=== PATIENT | male | born 1975 | race Two or more races ===

== ENCOUNTER 2024-01-19 08:45 | Emergency (ER) | payer MEDICAID, SELFPAY ==
[2024-01-19 08:55] VITALS: BP 187/81; PULSE 69; RESP 22; TEMP 36.4; O2SAT 97; BMI 35.0
--- NOTE | 2024-01-19 09:38 | PD.EDADULT ---
ED General RME/HPI General Chief complaint: Abdominal Pain Stated complaint: Abdominal pain, back pain Time Seen by Provider: 01/19/24 08:50 Arrival date/time: 01/19/24 08:45 RME / HPI RME / HPI narrative: 48-year-old male with no significant past medical history who presents with approximately 1 day of left flank pain radiating to the left lower quadrant. He notes some urgency to urinate, no dysuria, no polyuria, no hematuria. He denies nausea vomiting or diarrhea. He denies fevers chills or sweats. He denies recent fall or trauma. Related Data Previous Rx's ?Medication ?Instructions ?Recorded ibuprofen 600 mg tablet 600 mg PO Q8H PRN pain #14 tabs 01/19/24 ondansetron 4 mg disintegrating 4 mg PO Q8H PRN nausea and 01/19/24 tablet vomiting #10 tabs tamsulosin 0.4 mg capsule 0.4 mg PO QDAY 7 days #7 caps 01/19/24 Allergies Allergy/AdvReac Type Severity Reaction Status Date / Time No Known Allergies Allergy Verified 07/29/23 11:39 Review of Systems Review of Systems Systems Reviewed: All systems reviewed, normal except as documented Narrative Review of Systems: Gen: No fever, no chills, no weight loss EYES: No discharge, no visual changes, no pain HEENT: No ear pain, no congestion, no sore throat PULM: no shortness of breath, no cough, no congestion CV: No chest pain, no dyspnea on exertion, no palpitations, no chest tightness GI: No nausea, no vomiting, no diarrhea, +LLQ pain, no constipation : No frequency, +urgency,? no dysuria Musc/skel: No joint pain, +left flank/back pain Skin: No rash, no ecchymosis, no lesions Psyc: No hallucinations, no depression Heme/Lymph: No easy bleeding or bruising tendencies Neuro: No weakness, no headache Past Medical History Past Medical History CARDIAC: Negative Cardiac Disorders or Congestive Heart Failure RESPIRATORY: Negative Chronic Obstructive Pulmonary Disease (COPD) or Asthma GENITOURINARY: Negative Renal Disease ENDOCRINE: Negative Diabetes Mellitus Type 1 or Diabetes Mellitus Type 2 HEMATOLOGIC: Negative Sickle Cell Disease Social History SMOKING STATUS: Never smoker SECOND HAND EXPOSURE: No SUBSTANCE USE: does not use ED Exam Narrative Physical exam: GENERAL APPEARANCE: AxOx4, generally well-appearing, moderate distress, standing up walking, pacing in the room trying to get into a comfortable position HEENT: NC, AT. MMM. EOMI, clear conjunctiva, oropharynx clear. NECK: Supple without lymphadenopathy. No stiffness or restricted ROM. HEART: Normal rate and regular rhythm, normal S1/S1, no m/r/g LUNGS: CTAB, moving air well. No crackles or wheezes are heard. ABDOMEN: Soft, nontender, nondistended with good bowel sounds heard. BACK: No midline C/T/L spine pain or deformity, left CVAT, no obvious deformity. EXTREMITIES: Without cyanosis, clubbing or edema. MUSCULOSKELETAL: FROM of all major joints, no chest tenderness NEUROLOGICAL: Grossly nonfocal. Alert and oriented, moving all 4 extremities. CN not formally tested but appear grossly intact. Observed to ambulate with normal gait. Skin: Warm and dry without any rash. Course Quality Measures none Orders Category Date Time Status CT abdomen pelvis wo con Stat Exams 01/19/24 09:37 Completed Urinalysis Stat Lab 01/19/24 11:29 Completed DiphenhydrAMINE INJ [Benadryl Inj] Med 01/19/24 10:05 Discontinued 50 mg IM X1 ONE Ketorolac Inj [Toradol Inj] Med 01/19/24 09:36 Discontinued 30 mg IM X1 ONE Metoclopramide Inj [Reglan Inj] Med 01/19/24 10:05 Discontinued 10 mg IM X1 ONE Ondansetron Odt [Zofran Odt] Med 01/19/24 09:40 Discontinued 4 mg PO X1 ONE Reevaluation(s) Reevaluation #1: We reviewed all the results, analysis, and treatment plans. Patient is amenable to discharge. Strict return precautions were outlined. Patient was discharged in stable condition. Time: 12:24 Vital Signs Vital signs: Vital Signs Temperature 97.6 F 01/19/24 08:55 Pulse Rate 69 01/19/24 08:55 Respiratory Rate 22 H 01/19/24 08:55 Blood Pressure 187/81 H 01/19/24 08:55 Pulse Oximetry (%) 97 01/19/24 08:55 Oxygen Delivery Method Room Air 01/19/24 08:55 Pulse ox is 97% on room air which is adequate. MDM Patient data External records reviewed:: [facility] previous records (I reviewed ED visit on 01/09/2022) Clinical information provided by:: patient Social determinants that could affect healthcare access:: none Patient has the following chronic illnesses:: No stated medical hx How is presenting disease/condition affected by chronic disease/condition?: no chronic disease Evaluation data The following diagnostics were reviewed and interpreted by me:: radiology exam(s) Lab and/or radiology exams considered but not ordered:: None Interpretation Summary: Ordering Physician: Josué Rose MD Date of Service: 01/19/24 Procedure(s): CT abdomen pelvis wo con Accession Number(s): [id number] cc: Josué Rose MD; Jason Motley MD; Bassam Pat MD~ Examination: CT abdomen and pelvis without contrast. Coronal 3-D reconstructions. Sagittal 2-D reconstructions. 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 Low dose protocols were performed. One or more of the following dose reduction techniques were used; automated exposure control, adjustment of the mA and/or KV according to patient size, use of iterative reconstruction technique. Findings: No visualized liver or splenic lesion No gallstones No pancreatic or adrenal mass Minimal left hydronephrosis secondary to 2 mm proximal left ureteral calculus Aorta normal size No bowel obstruction No pericecal inflammatory change Colonic diverticulosis, no diverticulitis Contracted urinary bladder IMPRESSION: Minimal left hydronephrosis secondary to 2 mm proximal left ureteral calculus Dictated By:Jason Motley MD Signed By:<Electronically signed by Jason Motley MD in [place]>01/19/24 1035 Medications Medications considered but not ordered:: None Medication administrations:: Medication Administration History Discontinued Medications Diphenhydramine HCl (Diphenhydramine Inj 50 Mg/Ml Vial) 50 mg IM X1 ONE Stop: 01/19/24 10:06 Last Admin: 01/19/24 10:20 Dose: 50 mg Documented By: MS Ketorolac Tromethamine (Ketorolac Inj 60 Mg/2 Ml Vial) 30 mg IM X1 ONE Stop: 01/19/24 09:37 Last Admin: 01/19/24 09:50 Dose: 30 mg Documented By: Metoclopramide HCl (Metoclopramide Inj 5 Mg/Ml Vial 2 Ml) 10 mg IM X1 ONE; Protocol Stop: 01/19/24 10:06 Last Admin: 01/19/24 10:20 Dose: 10 mg Documented By: Ondansetron HCl (Ondansetron Odt 4 Mg Tabrap) 4 mg PO X1 ONE; Protocol Stop: 01/19/24 09:41 Last Admin: 01/19/24 09:50 Dose: 4 mg Documented By: See above Consultations Consultation(s) initiated? (list below): No Diagnosis Differential Diagnosis ED Complaint MDM: Renal stone, pyelonephritis Most likely diagnosis given after review of the tests above:: Ureterolithiasis Admission Indicated Admission indicated?: not indicated Explain why admission is indicated or not indicated:: Symptoms improved, does not meet admission criteria. Admission Request Was there a request for admission?: No Disposition Plan Disposition Plan: Discharge Discharge Attestation Discharge Attestation: The patient and all family members were given an opportunity to ask questions and understood the discharge instructions. Discharge instructions specifically effects, indications for sooner follow up or return to the emergency department, and the expected course of current diagnosis. Patient condition: Stable Medical Decision Making Differential Diagnosis Differential Diagnosis: Renal stone, pyelonephritis Lab Data Labs: Lab Results 01/19/24 Range/Units 11:29 Ur Collection Type Clean Catch Urine Color Yellow (Lt Yel-Yel) Urine Clarity Hazy (Clear/Hazy) Urine pH 5.5 (5.0-7.0) Ur Specific [place] 1.032 (1.001-1.035) Urine Protein 1+ A (Neg - Trace) Urine Glucose (UA) Negative (Negative) Urine Ketones Negative (Negative) Urine Blood 3+ A (Negative) Urine Nitrite Negative (Negative) Urine Bilirubin Negative (Negative) Urine Urobilinogen (Auto) Negative (0.0-1.0) mg/dL Ur Leukocyte Esterase Negative (Negative) Urine RBC 238 H (0-3) /hpf Urine WBC 13 H (0-5) /hpf Ur Squamous Epith Cells 0 (0-5) /hpf Calcium Oxalate Crystal 3+ A (None) Urine Bacteria Rare (None) Discharge Plan Plan Patient Disposition: HOME (Self Care) Prescriptions/Referrals Prescriptions/Med Rec: New tamsulosin 0.4 mg capsule 0.4 mg PO QDAY 7 Days Qty: 7 0RF ibuprofen 600 mg tablet 600 mg PO Q8H PRN (Reason: pain) Qty: 14 0RF ondansetron 4 mg tablet,disintegrating 4 mg PO Q8H PRN (Reason: nausea and vomiting) Qty: 10 0RF Referrals: Bassam Pat MD [Primary Care Provider] - In 1 week Problem List Clinical Impression: Ureterolithiasis Patient/Caregiver Discharge Instructions Education Materials: ED Kidney Stone w/ Colic Additional Instructions: Jennyfer un seguimiento con ceron m?dico de atenci?n primaria en 2 a 3 d?as para volver a controlarlo. Puede regresar al departamento de emergencias antes si los s?ntomas empeoran o si nota alg?n problema nuevo que le preocupe. Print Language: Armenian Stand Alone Forms: [facility] Award Info., Patient Portal Info Letter
[2024-01-19] MEDS: ONDANSETRON ODT 4 MG TABRAP PO (09:50)
[2024-01-19] MEDS: KETOROLAC INJ 60 MG/2 ML VIAL 30 MG IM (09:50)
[2024-01-19] MEDS: DiphenhydrAMINE INJ 50 MG/ML VIAL IM (10:20)
[2024-01-19] MEDS: METOCLOPRAMIDE INJ 5 MG/ML VIAL 2 ML 10 MG IM (10:20)
[2024-01-19 10:46] VITALS: BP 171/96; PULSE 87; RESP 16; O2SAT 100
[2024-01-19 11:46] LABS: Collection Type, Urine Clean Catch; Squamous Epithelial Cell,Urine 0 /hpf (0-5)
[2024-01-19 12:01] LABS: Bacteria,Urine Rare; Bilirubin,Urine Negative (Negative); Blood,Urine 3+ (Negative); Calcium Oxalate Crystals,Urine 3+; Color,Urine Yellow (Lt Yel-Yel); Glucose, Urine Negative (Negative); Ketones,Urine Negative (Negative); Leukocyte Esterase,Urine Negative (Negative); Nitrite,Urine Negative (Negative); PH,Urine 5.5 (5.0-7.0); Protein,Urine 1+ (Neg - Trace); RBC,Urine 238 /hpf (0-3); Specific Gravity,Urine 1.032 (1.001-1.035); Urobilinogen,Urine Negative mg/dL (0.0-1.0); WBC,Urine 13 /hpf (0-5)
[2024-01-19 12:02] LABS: Clarity,Urine Hazy (Clear/Hazy)
[2024-01-19 12:46] VITALS: BP 169/91; PULSE 71; RESP 14; O2SAT 98
[2024-01-19 13:55] VITALS: BP 165/89; PULSE 80; RESP 14; TEMP 35.9; O2SAT 99
== END 2024-01-19 13:58 | disposition home or self-care (01) ==
PROVIDERS: Emergency Provider Emergency Medicine; PCP Family Medicine
DX: N13.2 Hydronephrosis with renal and ureteral calculous obstruction (principal)
CPT/HCPCS: 74176; 81001; 96372; 99284; J1200; J1885; J2765; Q0162

== ENCOUNTER 2024-04-17 20:43 | Emergency (ER) | payer MEDICAID, SELFPAY ==
--- NOTE | 2024-04-17 22:15 | PC.NURSE ---
NO ANSWER FOR VITALS
--- NOTE | 2024-04-17 22:44 | PC.NURSE ---
NO ANSWER FOR VITALS
== END 2024-04-17 22:45 | disposition left against medical advice (07) ==
PROVIDERS: Emergency Provider Emergency Medicine; PCP Nurse Practitioner Family
DX: Z53.21 Procedure and treatment not carried out due to patient leaving prior to being seen by health care provider (principal)

== ENCOUNTER → 2024-04-28 | Outpatient (CLI) | payer MEDICAID, SELFPAY ==
--- NOTE | 2024-04-28 11:30 | XR_ITS ---
Examination: Abdomen sonogram, complete Date and time of exam: April 28, 2024 1159 hours INDICATIONS: Bilateral flank pain beginning 4 months ago. Technique: Multiple real-time grayscale transabdominal sonographic images of the abdomen have been obtained. Findings: Normal gallbladder Normal common bile duct 0.2 cm Pancreatic head 3.1 cm Aorta not enlarged Liver 13.8 cm fatty infiltration Normal hepatopedal portal venous flow Patent IVC Right kidney 11.7 cm renal cortex 2.0 cm Left kidney 11.6 cm renal cortex 2.2 cm Mild bilateral renal parenchymal scar formation Spleen 9.9 cm IMPRESSION: Normal gallbladder Fatty liver
== END | disposition home or self-care (01) ==
DX: K76.0 Fatty (change of) liver, not elsewhere classified (principal)
CPT/HCPCS: 76700

== ENCOUNTER 2024-05-24 06:50 | Day surgery (SDC) | payer MEDICAID, SELFPAY ==
[2024-05-23 14:39] VITALS: BMI 33.6
[2024-05-24] VITALS (9 sets, daily range): BP systolic 116–173; BP diastolic 71–108; PULSE 55–67; RESP 17–24; TEMP 36.4–36.6; O2SAT 96–100; BMI 33.8
[2024-05-24] MEDS: SODIUM CHLORIDE 0.9% 500 ML 500 ML 125 ML IV (07:18)
[2024-05-24] MEDS: DiphenhydrAMINE INJ 50 MG/ML VIAL 25 MG IV (07:24)
[2024-05-24] MEDS: MIDAZOLAM INJ 1 MG/ML VIAL 2 ML (ASD USE ONLY) 2 MG IV (07:26)
[2024-05-24] MEDS: fentaNYL CIT INJ 50 mCg/ML AMP 2ML (ASD USE ONLY) IV (07:28)
== END 2024-05-24 08:30 | disposition home or self-care (01) ==
PROVIDERS: Referring Provider Surgery; Visit Provider Surgery
PROC: 0DBE8ZX Excision of Large Intestine, Via Natural or Artificial Opening Endoscopic, Diagnostic (ICD-10-PCS; CPT 45380; principal; 2024-05-24 07:30)
DX: Z12.11 Encounter for screening for malignant neoplasm of colon (principal); Z12.12 Encounter for screening for malignant neoplasm of rectum; K57.30 Diverticulosis of large intestine without perforation or abscess without bleeding
CPT/HCPCS: 45378; J1200; J2250; J3010; J7040